=== PATIENT | female | born 1945 | race Caucasian/White ===

== ENCOUNTER 2016-10-08 20:50 | Emergency (ER) | payer MEDICARE ==
--- NOTE | 2016-10-08 23:55 | ER Document Report ---
ED General - General Mode of Arrival: Medic Information source: Patient TRAVEL OUTSIDE OF THE [place] IN LAST 30 DAYS: No - HPI Onset: Other - Refer to HPI notes Associated symptoms: Diarrhea, Nausea Similar symptoms previously: Yes Recently seen / treated by doctor: No <DYANA WILLS - Last Filed: 10/09/16 06:27> <MACY HERNADEZ - Last Filed: 10/09/16 06:30> - General Chief Complaint: Back Pain Stated Complaint: BACK PAIN Time Seen by Provider: 10/08/16 23:32 Notes: Patient is a 71-year-old female presenting to the emergency department for right -sided back pain. Patient states that her pain was onset on Friday and worsened today. Patient states that she has some chronic back pain and she has frequent flareups however this pain is more severe. Patient is scheduled to have a colonoscopy tomorrow morning and has done the first half of her preparation for such. Patient has had multiple episodes of diarrhea due to the colonoscopy preparation and states that she sat on the commode for a long time of greater than 30 minutes. Patient also complains of some nausea. Patient describes her pain as stabbing across her back and in the lower right side. Patient denies any fever, numbness, tingling, or trauma to her back. Patient has no known drug allergies. (DYANA WILLS) - Related Data Allergies/Adverse Reactions: No Known Allergies Allergy (Unverified 10/17/11 11:25) Past Medical History - General Information source: Patient - Social History Smoking Status: Never Smoker Cigarette use (# per day): No Chew tobacco use (# tins/day): No Smoking Education Provided: No Frequency of alcohol use: None Drug Abuse: None Patient has suicidal ideation: No Patient has homicidal ideation: No - Past Medical History Cardiac Medical History: Reports: Hx Hypercholesterolemia, Hx Hypertension Endocrine Medical History: Reports: Hx Diabetes Mellitus Type 2 GI Medical History: Reports: Hx Gastroesophageal Reflux Disease, Hx Irritable Bowel Musculoskeltal Medical History: Reports Hx Arthritis - OA Surgical Hx: Negative Past Surgical History: Reports: Hx Cholecystectomy, Hx Gynecologic Surgery - BTL , Hx Orthopedic Surgery - knee, Hx Tubal Ligation - Immunizations Hx Diphtheria, Pertussis, Tetanus Vaccination: No <DYANA WILLS - Last Filed: 10/09/16 06:27> - Social History Family History: Reviewed & Not Pertinent <MACY HERNADEZ - Last Filed: 10/09/16 06:30> Review of Systems - Review of Systems Constitutional: No symptoms reported EENT: No symptoms reported Cardiovascular: No symptoms reported Respiratory: No symptoms reported Gastrointestinal: See HPI, Diarrhea, Nausea Genitourinary: No symptoms reported Female Genitourinary: No symptoms reported Musculoskeletal: See HPI, Back pain Skin: No symptoms reported Hematologic/Lymphatic: No symptoms reported Neurological/Psychological: No symptoms reported -: Yes All other systems reviewed and negative <DYANA WILLS - Last Filed: 10/09/16 06:27> Physical Exam <DYANA WILLS - Last Filed: 10/09/16 06:27> <MACY HERNADEZ - Last Filed: 10/09/16 06:30> - Vital signs Vitals: Temp Pulse Resp BP Pulse Ox 97.7 F 77 17 138/59 H 99 10/08/16 20:59 10/08/16 20:59 10/08/16 20:59 10/08/16 20:59 10/08/16 20:59 - Notes Notes: GENERAL: Alert, interacts well. No acute distress. HEAD: Normocephalic, atraumatic. EYES: Pupils equal, round, and reactive to light. Extraocular movements intact. ENT: Oral mucosa moist, tongue midline. NECK: Full range of motion. Supple. Trachea midline. LUNGS: Clear to auscultation bilaterally, no wheezes, rales, or rhonchi. No respiratory distress. HEART: Regular rate and rhythm. No murmurs, gallops, or rubs. ABDOMEN: Left lower quadrant abdominal pain. Non-distended. Bowel sounds present in all 4 quadrants. EXTREMITIES: Moves all 4 extremities spontaneously. No edema, dorsalis pedis pulses 2/4 bilaterally. No cyanosis. BACK: Right-sided paraspinal musculature spasm and tenderness to palpation from the thoracolumbar junction to the lumbosacral junction, tenderness to palpation mostly over the right sided paraspinal musculature at the level of the lumbosacral junction, there is some scoliosis of the spine, no midline bony tenderness to palpation, no step-offs, no deformities. Increased pain to the right lower back with straight leg test with the right leg, straight leg raise test is negative bilaterally. NEUROLOGICAL: Alert and oriented x3. Normal speech. Patellar DTRs 2+ bilaterally. PSYCH: Normal affect, normal mood. SKIN: Warm, dry, normal turgor. No rashes or lesions noted. (DYANA WILLS) Course - Laboratory Result Diagrams: 10/09/16 00:28 10/09/16 00:28 <DYANA WILLS - Last Filed: 10/09/16 06:27> - Laboratory Result Diagrams: 10/09/16 00:28 10/09/16 00:28 <MACY HERNADEZ - Last Filed: 10/09/16 06:30> - Re-evaluation Re-evalutation: 10/09/16 01:30 CBC unremarkable, CMP grossly unremarkable minimally elevated glucose at 122, cardiac enzymes negative, urinalysis negative. No evidence of cauda equina. Patient's pain here treated with a single dose of narcotic as well as with Robaxin. Patient is recommended to finish her colonoscopy prep and to go to her colonoscopy tomorrow. Patient is not recommended to skip her colonoscopy. Patient's pain appears to be an acute exacerbation of her chronic low back pain. No indication for further narcotics on discharge, no indication for MRI at this time. Discharged home. (MACY HERNADEZ) - Vital Signs Vital signs: Temp Pulse Resp BP Pulse Ox 98 F 77 18 133/64 H 98 10/09/16 02:20 10/09/16 02:20 10/09/16 02:20 10/09/16 02:20 10/09/16 02:20 - Laboratory Laboratory results interpreted by me: 10/09/16 00:28 Est GFR (Non-Af Amer) 58 L Glucose 122 H - EKG Interpretation by Me Additional EKG results interpreted by me: 10/09/16 01:33 EKG computer interprets as atrial fibrillation however it disagree patient does have a tremor so there is an irregular baseline however it appears to be sinus rhythm at a rate of 69, normal axis, normal intervals, no ST segment elevations or depressions, no T-wave inversions per my interpretation. (MACY HERNADEZ) Discharge <DYANA WILLS - Last Filed: 10/09/16 06:27> <MACY HERNADEZ - Last Filed: 10/09/16 06:30> - Discharge Clinical Impression: Acute exacerbation of chronic low back pain Condition: Stable Disposition: HOME, SELF-CARE Instructions: Low Back Pain ([facility]) Prescriptions: Methocarbamol [Robaxin 750 mg Tablet] 750 mg PO ASDIR PRN #40 tablet PRN Reason: Scribe Attestation: 10/09/16 06:30 I personally performed the services described in the documentation, reviewed and edited the documentation which was dictated to the scribe in my presence, and it accurately records my words and actions. (MACY HERNADEZ) [employer] Documentation - Scribe Written by Shawn:: Shawn Emanuel, 10/09/2016 15:30 acting as scribe for :: Pb <DYANA WILLS - Last Filed: 10/09/16 06:27>
[2016-10-09 00:36] LABS: ABSOLUTE BASOPHILS # (AUTO) 0.1 10^3/uL (0.0-0.2); ABSOLUTE EOSINOPHILS # (AUTO) 0.4 10^3/uL (0.0-0.6); ABSOLUTE LYMPHOCYTES (AUTO) 2.1 10^3/uL (0.5-4.7); ABSOLUTE MONOCYTES (AUTO) 0.5 10^3/uL (0.1-1.4); ABSOLUTE NEUT (AUTO) 6.5 10^3/uL (1.7-8.2); BASOPHILS % (AUTO) 0.6 % (0-2); EOSINOPHILS % (AUTO) 3.8 % (0-6); HEMATOCRIT 39.9 % (36.0-47.0); HEMOGLOBIN 13.5 g/dL (12.0-15.5); HGB HCT DIFFERENCE 0.6; LYMPHOCYTES % (AUTO) 22.1 % (13-45); MEAN CORPUSCULAR HEMOGLOBIN 30.2 pg (27.0-33.4); MEAN CORPUSCULAR HGB CONC 33.9 g/dL (32.0-36.0); MEAN CORPUSCULAR VOLUME 89 fl (80-97); MONOCYTES % (AUTO) 5.4 % (3-13); RED BLOOD COUNT 4.48 10^6/uL (3.72-5.28); RED CELL DISTRIBUTION WIDTH 13.3 % (11.5-14.0); SEGMENTED NEUTROPHILS % (AUTO) 68.1 % (42-78); WHITE BLOOD COUNT 9.5 10^3/uL (4.0-10.5)
[2016-10-09] MEDS ORDERED: HYDROCODONE/ACETAMINOPHEN 5-325 MG TABLET PO ONE (00:44)
[2016-10-09] MEDS ORDERED: NORMAL SALINE 1000 ML 1,000 ML IV ONE (00:44)
[2016-10-09] MEDS ORDERED: METHOCARBAMOL 750 MG TABLET PO ONE (00:44)
[2016-10-09 00:58] LABS: ALANINE AMINOTRANSFERASE 36 U/L (9-52); ALBUMIN 3.6 g/dL (3.5-5.0); ALKALINE PHOSPHATASE 65 U/L (38-126); ANION GAP 11 (5-19); ASPARTATE AMINO TRANSFERASE 23 U/L (14-36); BILIRUBIN,DIRECT 0.2 mg/dL (0.0-0.4); BILIRUBIN,TOTAL 0.8 mg/dL (0.2-1.3); BLOOD UREA NITROGEN 18 mg/dL (7-20); CALCIUM 8.7 mg/dL (8.4-10.2); CARBON DIOXIDE 27 mmol/L (22-30); CHLORIDE 101 mmol/L (98-107); CREATINE KINASE 69 U/L (30-135); CREATININE RESULT 0.95 mg/dL (0.52-1.25); GLUCOSE 122 mg/dL (75-110); POTASSIUM 3.9 mmol/L (3.6-5.0)
[2016-10-09 01:21] LABS: CREATINE KINASE MB 1.31 ng/mL (<4.55)
[2016-10-09 01:25] LABS: APPEARANCE,URINE CLEAR; BILIRUBIN,URINE NEGATIVE (NEGATIVE); GLUCOSE, URINE NEGATIVE (NEGATIVE); KETONES,URINE NEGATIVE (NEGATIVE); LEUKOCYTE ESTERASE,URINE NEGATIVE (NEGATIVE); NITRITE,URINE NEGATIVE (NEGATIVE); PROTEIN,URINE NEGATIVE (NEGATIVE); URINE SPECIFIC GRAVITY 1.013; UROBILINOGEN,URINE NEGATIVE mg/dL (<2.0)
[2016-10-09 01:26] LABS: TROPONIN I < 0.012 ng/mL
[2016-10-09 02:43] VITALS: BP 133/64
--- NOTE | 2016-10-09 08:16 | EKG REPORT ---
SEVERITY:- ABNORMAL ECG - MORE LIKELY SINUS RHYTHM WITH BASELINE ARTEFACTS. REPEAT EKG, AND CLINICAL CORRELATION. A-FLUTTER/FIBRILLATION W/ COMPLETE AV BLOCK : Confirmed by: Chivo Culp MD 09-Oct-2016 08:16:23
== END 2016-10-09 02:15 | disposition home or self-care (01) ==
LOC: ER 20:50
DX: G89.29 Other chronic pain (principal); M54.5 Low back pain; R11.0 Nausea; R19.7 Diarrhea, unspecified; E78.00 Pure hypercholesterolemia, unspecified; E11.9 Type 2 diabetes mellitus without complications; I10 Essential (primary) hypertension; Z90.49 Acquired absence of other specified parts of digestive tract; Z98.51 Tubal ligation status
CPT/HCPCS: 93005; 99284; 96360; 36415; 82553; 82550; 85025; 80053; 81001; 84484; 93010; A9270 ×2; J7030; J3490

== ENCOUNTER → 2016-10-10 | Outpatient (CLI) | payer MEDICARE ==
--- NOTE | 2016-10-10 12:19 | RADIOLOGY REPORT (SQ) ---
EXAM DESCRIPTION: LUMBAR SPINE COMPLETE COMPLETED DATE/TIME: 10/10/2016 11:31 am REASON FOR STUDY: LOW BACK PAIN M54.5 LOW BACK PAIN COMPARISON: [facility] 06/14/2014 NUMBER OF VIEWS: Five views including obliques. TECHNIQUE: AP, lateral, oblique, and sacral radiographic images acquired of the lumbar spine. LIMITATIONS: None. FINDINGS: MINERALIZATION: Normal. SEGMENTATION: Normal. No transitional anatomy. ALIGNMENT: Convex rightward lumbar curvature VERTEBRAE: Maintained height. No fracture or worrisome bone lesion. DISCS: Significant disc space loss of height at all lumbar levels. Leftward bulky bony spurring at L 3-4. POSTERIOR ELEMENTS: Pedicles and facets are intact. No pars defect or posterior arch defects. Diffu se lumbar facet arthropathy HARDWARE: None in the spine. PARASPINAL SOFT TISSUES: Normal. PELVIS: Intact as visualized. No fractures or worrisome bone lesions. SI joints intact. OTHER: Clips post tubal ligation IMPRESSION: Significant multilevel degenerative disc changes TECHNICAL DOCUMENTATION: JOB ID: [id number] [employer]- All Rights Reserved
== END ==
LOC: OD 11:10
PROVIDERS: ATTEND Physician Assistant
DX: M54.5 Low back pain (principal); M51.36 Other intervertebral disc degeneration, lumbar region
CPT/HCPCS: 72110

== ENCOUNTER 2017-04-04 20:12 | Emergency (ER) | payer MEDICARE ==
[2017-04-04] MEDS ORDERED: NORMAL SALINE 1000 ML 500 ML IV ONE (21:19)
[2017-04-04] MEDS ORDERED: DIAZEPAM 2 MG TABLET PO ONE (21:20)
--- NOTE | 2017-04-04 21:25 | ER Document Report ---
ED General - General Chief Complaint: Dizziness Stated Complaint: DIZZINESS,NAUSEA Time Seen by Provider: 04/04/17 20:55 Notes: Patient is a 72-year-old female who presents with concerns of an episode of head fullness with associated dizziness. She reports that this episode started while she was using her iPad lasted approximately 20-30 minutes but has now mostly resolved. Patient is a difficult time characterizing the nature of her symptoms during this event only that she felt "weird". She denies any focal weakness, numbness, imbalance headache, neck pain, or altered mental status during this episode. She is uncertain what triggered the episode and states that it has mostly resolved after receiving IV fluids by EMS. She states that she had a sensation of mild chest heaviness during the episode but states that that likewise is completely resolved without intervention. She denies a history of similar symptoms in the past. She has not seen her primary doctor regarding today's concerns. TRAVEL OUTSIDE OF THE [place] IN LAST 30 DAYS: No - Related Data Allergies/Adverse Reactions: No Known Allergies Allergy (Unverified 10/17/11 11:25) Past Medical History - General Information source: Patient - Social History Smoking Status: Never Smoker Chew tobacco use (# tins/day): No Frequency of alcohol use: None Drug Abuse: None Lives with: Spouse/Significant other Family History: Reviewed & Not Pertinent Patient has suicidal ideation: No Patient has homicidal ideation: No - Past Medical History Cardiac Medical History: Reports: Hx Hypercholesterolemia, Hx Hypertension Denies: Hx Coronary Artery Disease, Hx Heart Attack Pulmonary Medical History: Denies: Hx Asthma, Hx Bronchitis, Hx COPD, Hx Pneumonia Neurological Medical History: Denies: Hx Cerebrovascular Accident, Hx Seizures Endocrine Medical History: Reports: Hx Diabetes Mellitus Type 1, Hx Diabetes Mellitus Type 2 Renal/ Medical History: Denies: Hx Peritoneal Dialysis GI Medical History: Reports: Hx Gastroesophageal Reflux Disease, Hx Irritable Bowel Musculoskeltal Medical History: Reports Hx Arthritis - OA Past Surgical History: Reports: Hx Cholecystectomy, Hx Gynecologic Surgery - BTL , Hx Orthopedic Surgery - knee, Hx Tubal Ligation. Denies: Hx Pacemaker - Immunizations Hx Diphtheria, Pertussis, Tetanus Vaccination: No Review of Systems - Review of Systems Notes: Constitutional: Negative for fever. HENT: Negative for sore throat. Eyes: Negative for visual changes. Cardiovascular: Negative for chest pain. Respiratory: Negative for shortness of breath. Gastrointestinal: Negative for abdominal pain, vomiting or diarrhea. Genitourinary: Negative for dysuria. Musculoskeletal: Negative for back pain. Skin: Negative for rash. Neurological: Negative for headaches, weakness or numbness. 10 point ROS negative except as marked above and in HPI. Physical Exam - Vital signs Vitals: Resp Pulse Ox 13 97 04/04/17 20:33 04/04/17 20:33 Interpretation: Normal Notes: PHYSICAL EXAMINATION: GENERAL: Well-appearing, well-nourished and in no acute distress. HEAD: Atraumatic, normocephalic. EYES: Pupils equal round and reactive to light, extraocular movements intact, sclera anicteric, conjunctiva are normal. ENT: nares patent, oropharynx clear without exudates. Moist mucous membranes. NECK: Normal range of motion, supple without lymphadenopathy LUNGS: Breath sounds clear to auscultation bilaterally and equal. No wheezes rales or rhonchi. HEART: Regular rate and rhythm without murmurs ABDOMEN: Soft, nontender, normoactive bowel sounds. No guarding, no rebound. No masses appreciated. EXTREMITIES: Normal range of motion, no pitting or edema. No cyanosis. NEUROLOGICAL: Face symmetric. Tongue protrudes midline. Extraocular motions intact. Pupils are 2 mm and equally reactive. Normal speech, normal gait. 5 out of 5 strength in both the distal and proximal upper and lower extremities bilaterally. Sensation is grossly intact throughout. Finger to nose testing normal. Pronator drift normal. PSYCH: Normal mood, normal affect. SKIN: Warm, Dry, normal turgor, no rashes or lesions noted. Course - Re-evaluation Re-evalutation: 04/04/17 21:25 Presentation and an overall well-appearing patient in no acute distress who complains of an episode of head fullness and dizziness. At time of evaluation, patient's vitals are within normal limits and they are denying any additional acute complaints. Physical examination without focal findings. No neurologic deficits. They deny any chest pain, shortness of breath, nausea, vomiting, or diarrhea. No dysuria or fever. Labs show mild urinary tract infection and a culture has been sent. Labs also demonstrate mild hypokalemia which I do not suspect is related to the patient's presentation. This has been repleted with oral potassium and magnesium and the patient has been instructed for recheck as an outpatient within the next 3 days. Troponin is also negative. Low clinical suspicion for ACS, occult pneumonia, acute intra-abdominal pathology, stroke, or transient ischemic attack based on clinical history, examination, and laboratories. They have tolerated oral intake without difficulty. I do not suspect an acute cerebellar stroke as patient denies any symptoms at time of my assessment and has no signs of cerebellar injury on examination. At this time will discharge with return precautions and follow-up recommendations. Verbal discharge instructions given a the bedside and opportunity for questions given. Medication warnings reviewed. Patient is in agreement with this plan and has verbalized understanding of return precautions and the need for primary care follow-up in the next 24-72 hours. - Vital Signs Vital signs: Temp Pulse Resp BP Pulse Ox 98.9 F 90 21 H 150/61 H 99 04/04/17 22:02 04/04/17 20:57 04/04/17 22:02 04/04/17 22:02 04/04/17 22:02 - Laboratory Result Diagrams: 04/04/17 20:45 04/04/17 20:45 Laboratory results interpreted by me: 04/04/17 04/04/17 04/04/17 20:45 20:45 21:20 WBC 11.9 H Absolute Neutrophils 9.3 H Potassium 2.9 L* Glucose 205 H Ur Leukocyte Esterase MODERATE H - EKG Interpretation by Me Additional EKG results interpreted by me: 04/05/17 04:04 Sinus rhythm. Rate 80. No ST elevations or depressions. Motion artifact. Discharge - Discharge Clinical Impression: Dizziness, Hypokalemia Urinary tract infection Qualifiers: Urinary tract infection type: acute cystitis Hematuria presence: without hematuria Qualified Code(s): N30.00 - Acute cystitis without hematuria Condition: Good Disposition: HOME, SELF-CARE Additional Instructions: You were seen today for lightheadedness/dizziness. Your labs do show that she have a urinary tract infection which may be related to her symptoms. Your potassium is also slightly low and has been replaced here in the emergency department. You need to follow-up with your primary care doctor for a recheck of your potassium level. Please follow closely with your primary care physician in the next 1-3 days. Return if you pass out, have additional episodes of lightheadedness, develop weakness/numbness, have persistent vomiting , chest pain, shortness of breath or any other symptoms that are concerning to you. You are being sent home on a 5 day course of antibiotics to treat your urinary tract infection. Prescriptions: Cephalexin Monohydrate [Keflex 500 mg Capsule] 500 mg PO Q6H 5 Days capsule Referrals: NEVAEH RAJAN MD [Primary Care Provider] - Follow up in 3-5 days
[2017-04-04 21:48] LABS: APPEARANCE,URINE CLEAR; BILIRUBIN,URINE NEGATIVE (NEGATIVE); COLOR,URINE YELLOW; GLUCOSE, URINE NEGATIVE (NEGATIVE); KETONES,URINE NEGATIVE (NEGATIVE); LEUKOCYTE ESTERASE,URINE MODERATE (NEGATIVE); NITRITE,URINE NEGATIVE (NEGATIVE); PROTEIN,URINE NEGATIVE (NEGATIVE); URINE SPECIFIC GRAVITY 1.006; UROBILINOGEN,URINE NEGATIVE mg/dL (<2.0)
[2017-04-04 22:15] LABS: ABSOLUTE BASOPHILS # (AUTO) 0.1 10^3/uL (0.0-0.2); ABSOLUTE EOSINOPHILS # (AUTO) 0.3 10^3/uL (0.0-0.6); ABSOLUTE LYMPHOCYTES (AUTO) 1.9 10^3/uL (0.5-4.7); ABSOLUTE MONOCYTES (AUTO) 0.4 10^3/uL (0.1-1.4); ABSOLUTE NEUT (AUTO) 9.3 10^3/uL (1.7-8.2); BASOPHILS % (AUTO) 0.6 % (0-2); EOSINOPHILS % (AUTO) 2.8 % (0-6); HEMATOCRIT 38.8 % (36.0-47.0); HEMOGLOBIN 12.9 g/dL (12.0-15.5); LYMPHOCYTES % (AUTO) 15.5 % (13-45); MEAN CORPUSCULAR HEMOGLOBIN 30.1 pg (27.0-33.4); MEAN CORPUSCULAR HGB CONC 33.4 g/dL (32.0-36.0); MEAN CORPUSCULAR VOLUME 90 fl (80-97); MONOCYTES % (AUTO) 3.1 % (3-13); PLATELET COUNT 247 10^3/uL (150-450); RED CELL DISTRIBUTION WIDTH 13.4 % (11.5-14.0); TOTAL CELLS COUNTED % (AUTO) 100 %; WHITE BLOOD COUNT 11.9 10^3/uL (4.0-10.5)
[2017-04-04 22:18] LABS: ANION GAP 11 (5-19); BLOOD UREA NITROGEN 16 mg/dL (7-20); CALCIUM 8.6 mg/dL (8.4-10.2); CARBON DIOXIDE 28 mmol/L (22-30); CHLORIDE 102 mmol/L (98-107); GLUCOSE 205 mg/dL (75-110); SODIUM 140.7 mmol/L (137-145)
[2017-04-04 22:24] LABS: POTASSIUM 2.9 mmol/L (3.6-5.0)
[2017-04-04] MEDS ORDERED: MAGNESIUM OXIDE 400 MG TABLET PO ONE (22:25)
[2017-04-04] MEDS ORDERED: POTASSIUM CHLORIDE 20 MEQ/15 ML UDCUP PO ONE (22:25)
[2017-04-04] MEDS ORDERED: CEPHALEXIN 500 MG CAPSULE PO ONE (22:37)
[2017-04-04 22:59] VITALS: BP 150/61
--- NOTE | 2017-04-05 11:43 | EKG REPORT ---
SEVERITY:- ABNORMAL ECG - SINUS RHYTHM : Confirmed by: Silvia Hernandez 05-Apr-2017 11:43:11
--- NOTE | 2017-04-05 11:45 | EKG REPORT ---
SEVERITY:- ABNORMAL ECG - PROPABLE SINUS RHYTHM REC REPEAT EKG BECUASE ARTIFACTS PREVENTS ACCURATE INTERPRETATION : Confirmed by: Silvia Hernandez 05-Apr-2017 11:45:16
== END 2017-04-04 23:02 | disposition home or self-care (01) ==
LOC: ER 20:12
DX: E87.6 Hypokalemia (principal); N30.00 Acute cystitis without hematuria; R11.0 Nausea; R42 Dizziness and giddiness; E78.00 Pure hypercholesterolemia, unspecified; I10 Essential (primary) hypertension; Z90.49 Acquired absence of other specified parts of digestive tract; Z98.51 Tubal ligation status
CPT/HCPCS: 93005; 99284; 96360; 36415; 87086; 85025; 80048; 81001; 84484; 93010; A9270 ×4; J7030; J3490

== ENCOUNTER 2017-09-11 20:02 | Observation (INO) | payer MEDICARE ==
[2017-09-11] MEDS ORDERED: ASPIRIN 81 MG TABLET, CHEWABLE PO ONE (20:34)
[2017-09-11 22:02] LABS: ABSOLUTE BASOPHILS # (AUTO) 0.1 10^3/uL (0.0-0.2); ABSOLUTE EOSINOPHILS # (AUTO) 0.3 10^3/uL (0.0-0.6); ABSOLUTE LYMPHOCYTES (AUTO) 2.3 10^3/uL (0.5-4.7); ABSOLUTE MONOCYTES (AUTO) 0.4 10^3/uL (0.1-1.4); ABSOLUTE NEUT (AUTO) 7.1 10^3/uL (1.7-8.2); BASOPHILS % (AUTO) 0.5 % (0-2); EOSINOPHILS % (AUTO) 3.4 % (0-6); HEMATOCRIT 40.3 % (36.0-47.0); HEMOGLOBIN 13.8 g/dL (12.0-15.5); LYMPHOCYTES % (AUTO) 22.5 % (13-45); MEAN CORPUSCULAR HEMOGLOBIN 30.7 pg (27.0-33.4); MEAN CORPUSCULAR HGB CONC 34.4 g/dL (32.0-36.0); MEAN CORPUSCULAR VOLUME 89 fl (80-97); MONOCYTES % (AUTO) 4.3 % (3-13); PLATELET COUNT 259 10^3/uL (150-450); RED BLOOD COUNT 4.51 10^6/uL (3.72-5.28); RED CELL DISTRIBUTION WIDTH 13.6 % (11.5-14.0); SEGMENTED NEUTROPHILS % (AUTO) 69.3 % (42-78); TOTAL CELLS COUNTED % (AUTO) 100 %; WHITE BLOOD COUNT 10.2 10^3/uL (4.0-10.5)
--- NOTE | 2017-09-11 22:02 | RADIOLOGY REPORT (SQ) ---
EXAM DESCRIPTION: CHEST SINGLE VIEW COMPLETED DATE/TIME: 09/11/2017 9:09 pm REASON FOR STUDY: chest pain COMPARISON: 05/11/2012 EXAM PARAMETERS: NUMBER OF VIEWS: One view. TECHNIQUE: Single frontal radiographic view of the chest acquired. RADIATION DOSE: NA LIMITATIONS: None. FINDINGS: LUNGS AND PLEURA: No acute opacities, masses or pneumothorax. No pleural effusion. MEDIASTINUM AND HILAR STRUCTURES: Stable. HEART AND VASCULAR STRUCTURES: Heart normal in size. Normal vasculature. BONES: No acute findings. HARDWARE: None in the chest. OTHER: No other significant finding. IMPRESSION: NO ACUTE RADIOGRAPHIC FINDING IN THE CHEST. TECHNICAL DOCUMENTATION: JOB ID: [id number] [place]-[id number] 2010 [employer]- All Rights Reserved Reading location - IP/workstation name: [email or web address]
--- NOTE | 2017-09-11 22:06 | ER Document Report ---
ED General - General Chief Complaint: Chest Pain > 30 Stated Complaint: CHEST PAIN Time Seen by Provider: 09/11/17 20:34 Mode of Arrival: Ambulatory Information source: Patient Notes: 72-year-old female history of Parkinson's hypertension presents with complaints of chest pressure sensation. Patient notes she has had multiple similar episodes over the past few months which she attributes to anxiety. Patient is normally she does not have anxiety however she found her daughter in her room Patient noted today was a heavy pressure sensation felt like a ballooning in her chest, was given 2 nitroglycerin and her chest pain resolved Last stress test was approximately 9 years ago TRAVEL OUTSIDE OF THE [place] IN LAST 30 DAYS: No - HPI Onset: Other Onset/Duration: Intermittent Quality of pain: Pressure Severity: Mild Pain Level: 1 Associated symptoms: Chest pain Exacerbated by: Denies Relieved by: Other - nitro Similar symptoms previously: Yes Recently seen / treated by doctor: No - Related Data Allergies/Adverse Reactions: No Known Allergies Allergy (Unverified 10/17/11 11:25) Past Medical History - Social History Smoking Status: Never Smoker Cigarette use (# per day): No Chew tobacco use (# tins/day): No Smoking Education Provided: No Frequency of alcohol use: None Drug Abuse: None Family History: Reviewed & Not Pertinent Patient has suicidal ideation: No Patient has homicidal ideation: No - Past Medical History Cardiac Medical History: Reports: Hx Hypercholesterolemia, Hx Hypertension Denies: Hx Coronary Artery Disease, Hx Heart Attack Pulmonary Medical History: Denies: Hx Asthma, Hx Bronchitis, Hx COPD, Hx Pneumonia Neurological Medical History: Denies: Hx Cerebrovascular Accident, Hx Seizures Endocrine Medical History: Reports: Hx Diabetes Mellitus Type 1, Hx Diabetes Mellitus Type 2 Renal/ Medical History: Denies: Hx Peritoneal Dialysis GI Medical History: Reports: Hx Gastroesophageal Reflux Disease, Hx Irritable Bowel Musculoskeltal Medical History: Reports Hx Arthritis - OA Past Surgical History: Reports: Hx Cholecystectomy, Hx Gynecologic Surgery - BTL , Hx Orthopedic Surgery - knee bilaterally, Hx Tubal Ligation. Denies: Hx Pacemaker - Immunizations Hx Diphtheria, Pertussis, Tetanus Vaccination: No Review of Systems - Review of Systems Notes: REVIEW OF SYSTEMS: CONSTITUTIONAL : Denies fever, chills, or sweats. Denies recent illness. EENT: Denies eye, ear, throat, or mouth pain or symptoms. Denies nasal or sinus congestion or discharge. Denies throat, tongue, or mouth swelling or difficulty swallowing. CARDIOVASCULAR: Admits chest pain. RESPIRATORY: Denies cough, cold, or chest congestion. Denies shortness of breath, difficulty breathing, or wheezing. GASTROINTESTINAL: Denies abdominal pain or distention. Denies nausea, vomiting , or diarrhea. Denies blood in vomitus, stools, or per rectum. Denies black, tarry stools. Denies constipation. GENITOURINARY: Denies difficulty urinating, painful urination, burning, frequency, blood in urine, or discharge. FEMALE GENITOURINARY: Denies vaginal bleeding, heavy or abnormal periods, irregular periods. Denies vaginal discharge or odor. MUSCULOSKELETAL: Denies back or neck pain or stiffness. Denies joint pain or swelling. SKIN: Denies rash, lesions or sores. HEMATOLOGIC : Denies easy bruising or bleeding. LYMPHATIC: Denies swollen, enlarged glands. NEUROLOGICAL: Denies confusion or altered mental status. Denies passing out or loss of consciousness. Denies dizziness or lightheadedness. Denies headache. Denies weakness or paralysis or loss of use of either side. Denies problems with gait or speech. Denies sensory loss, numbness, or tingling. Denies seizures. PSYCHIATRIC: Admits to stress anxiety. ALL OTHER SYSTEMS REVIEWED AND NEGATIVE. PHYSICAL EXAMINATION: GENERAL: Well-appearing, well-nourished and in no acute distress. HEAD: Atraumatic, normocephalic. EYES: Pupils equal round and reactive to light, extraocular movements intact, conjunctiva are normal. ENT: Nares patent, oropharynx clear without exudates. Moist mucous membranes. NECK: Normal range of motion, supple without lymphadenopathy LUNGS: Breath sounds clear to auscultation bilaterally and equal. No wheezes rales or rhonchi. HEART: Regular rate and rhythm without murmurs ABDOMEN: Soft, nontender, nondistended abdomen. No guarding, no rebound. No masses appreciated. Female : deferred Musculoskeletal: Normal range of motion, no pitting or edema. No cyanosis. NEUROLOGICAL: Chronic tremors PSYCH: Normal mood, normal affect. SKIN: Warm, Dry, normal turgor, no rashes or lesions noted. Dictation was performed using [employer] voice recognition software Physical Exam - Vital signs Vitals: Resp 21 H 09/11/17 20:07 Course - Re-evaluation Re-evalutation: 09/11/17 22:05 While this may be attributed to anxiety is and symptomatic relief with nitroglycerin that I believe an ACS rule out is appropriate 09/11/17 22:48 pt noted to be hypotensive, started on iv fluids, will admit to Dr Coelho covering for Dr Rajan - Vital Signs Vital signs: Temp Pulse Resp BP Pulse Ox 97.9 F 68 16 108/55 L 95 09/11/17 20:22 09/11/17 20:22 09/11/17 21:01 09/11/17 21:01 09/11/17 21:01 - Laboratory Result Diagrams: 09/11/17 21:55 09/11/17 21:55 Laboratory results interpreted by me: 09/11/17 21:55 Sodium 146.4 H BUN 31 H Est GFR (Non-Af Amer) 53 L Glucose 113 H - Diagnostic Test Radiology reviewed: Image reviewed, Reports reviewed - EKG Interpretation by Me EKG shows normal: Sinus rhythm, [place], Intervals, QRS Complexes Discharge - Discharge Clinical Impression: Chest pain Qualifiers: Chest pain type: unspecified Qualified Code(s): R07.9 - Chest pain, unspecified Hypotension Qualifiers: Hypotension type: unspecified hypotension type Qualified Code(s): I95.9 - Hypotension, unspecified Condition: Stable Disposition: ADMITTED OBSERVATION Admitting Provider: [facility] Unit Admitted: Telemetry Referrals: NEVAEH RAJAN MD [Primary Care Provider] - Follow up as needed
[2017-09-11 22:18] LABS: ALANINE AMINOTRANSFERASE 26 U/L (9-52); ALBUMIN 3.8 g/dL (3.5-5.0); ALKALINE PHOSPHATASE 62 U/L (38-126); ANION GAP 14 (5-19); ASPARTATE AMINO TRANSFERASE 20 U/L (14-36); BILIRUBIN,DIRECT 0.3 mg/dL (0.0-0.4); BILIRUBIN,TOTAL 0.3 mg/dL (0.2-1.3); BLOOD UREA NITROGEN 31 mg/dL (7-20); CALCIUM 9.4 mg/dL (8.4-10.2); CARBON DIOXIDE 25 mmol/L (22-30); CHLORIDE 107 mmol/L (98-107); CREATINE KINASE 40 U/L (30-135); GLUCOSE 113 mg/dL (75-110); POTASSIUM 3.6 mmol/L (3.6-5.0); SODIUM 146.4 mmol/L (137-145)
[2017-09-11 22:27] LABS: CREATINE KINASE MB 0.72 ng/mL (<4.55)
[2017-09-11 22:28] LABS: TROPONIN I < 0.012 ng/mL
[2017-09-12 05:27] LABS: ABSOLUTE EOSINOPHILS # (AUTO) 0.3 10^3/uL (0.0-0.6); ABSOLUTE MONOCYTES (AUTO) 0.4 10^3/uL (0.1-1.4); ABSOLUTE NEUT (AUTO) 4.3 10^3/uL (1.7-8.2); BASOPHILS % (AUTO) 0.7 % (0-2); EOSINOPHILS % (AUTO) 4.2 % (0-6); HEMATOCRIT 38.3 % (36.0-47.0); LYMPHOCYTES % (AUTO) 28.5 % (13-45); MEAN CORPUSCULAR HEMOGLOBIN 30.2 pg (27.0-33.4); MEAN CORPUSCULAR HGB CONC 33.9 g/dL (32.0-36.0); MEAN CORPUSCULAR VOLUME 89 fl (80-97); MONOCYTES % (AUTO) 5.3 % (3-13); PLATELET COUNT 235 10^3/uL (150-450); RED BLOOD COUNT 4.29 10^6/uL (3.72-5.28); RED CELL DISTRIBUTION WIDTH 13.5 % (11.5-14.0); SEGMENTED NEUTROPHILS % (AUTO) 61.3 % (42-78); TOTAL CELLS COUNTED % (AUTO) 100 %; WHITE BLOOD COUNT 7.1 10^3/uL (4.0-10.5)
[2017-09-12 06:01] LABS: ANION GAP 12 (5-19); BLOOD UREA NITROGEN 26 mg/dL (7-20); CALCIUM 8.7 mg/dL (8.4-10.2); CARBON DIOXIDE 25 mmol/L (22-30); CHLORIDE 111 mmol/L (98-107); CREATINE KINASE 33 U/L (30-135); GLUCOSE 114 mg/dL (75-110); POTASSIUM 3.6 mmol/L (3.6-5.0); SODIUM 147.7 mmol/L (137-145)
[2017-09-12 06:02] LABS: CREATINE KINASE MB 0.71 ng/mL (<4.55)
[2017-09-12 06:07] LABS: TROPONIN I < 0.012 ng/mL
--- NOTE | 2017-09-12 07:31 | EKG REPORT ---
SEVERITY:- DEFECTIVE ECG - ATRIAL FIBRILLATION, V-RATE 69-82 VS BASELINE ARTEFACTS NONSPECIFIC T ABNORMALITIES, LATERAL LEADS : Confirmed by: Chivo Culp MD 12-Sep-2017 07:30:26
[2017-09-12] MEDS ORDERED: ALBUTEROL SULFATE HFA (90 MCG/PUFF) 200 PUFF/8.5 GM MDI IH PRN (07:58)
[2017-09-12] MEDS ORDERED: (PENDING PHARMACY ID) (Omega-3 Fatty Acids/Fish Oil [Fish Oil 1,000 Mg Capsule] 1 EACH) PO SCH (08:00)
[2017-09-12] MEDS ORDERED: ROPINIROLE HCL 8 MG PO SCH (08:00)
[2017-09-12] MEDS ORDERED: (PENDING PHARMACY ID) (Esomeprazole Mag Trihydrate [Nexium] 40 MG) PO SCH (08:00)
[2017-09-12] MEDS ORDERED: (PENDING PHARMACY ID) (Ropinirole Hcl [Requip Xl] 2 MG) PO SCH (08:00)
[2017-09-12] MEDS ORDERED: LANSOPRAZOLE 30 MG TAB.RAP.DR PO ONE (09:00)
[2017-09-12] MEDS ORDERED: LEVOTHYROXINE SODIUM 0.1 MG TABLET PO ONE (09:00)
[2017-09-12] MEDS ORDERED: OMEGA-3 ACID ETHYL ESTERS 1 GM CAPSULE PO SCH (10:00)
[2017-09-12] MEDS ORDERED: HYDROCHLOROTHIAZIDE 25 MG TABLET PO SCH (10:00)
[2017-09-12] MEDS ORDERED: ENOXAPARIN SODIUM INJ 40 MG/0.4 ML DISP.SYRIN SUBCUT SCH (10:00)
[2017-09-12] MEDS ORDERED: ASPIRIN 81 MG TABLET, ENT COATED PO SCH (10:00)
[2017-09-12] MEDS ORDERED: LISINOPRIL 10 MG TABLET PO SCH (10:00)
[2017-09-12] MEDS ORDERED: METFORMIN HCL 500 MG TABLET PO SCH (10:00)
[2017-09-12 11:16] LABS: CREATINE KINASE MB 0.74 ng/mL (<4.55)
[2017-09-12 11:17] LABS: TROPONIN I < 0.012 ng/mL
[2017-09-12] MEDS ORDERED: LOPERAMIDE HCL 2 MG CAPSULE PO PRN (13:42)
[2017-09-12] MEDS ORDERED: LOPERAMIDE HCL 2 MG CAPSULE PO ONE (14:15)
[2017-09-12 16:39] LABS: TROPONIN I < 0.012 ng/mL
--- NOTE | 2017-09-12 17:14 | PDOC H&P ---
History of Present Illness Admission Date/PCP: 09/11/17 23:14 NEVAEH RAJAN MD History of Present Illness: ALEX ERIC is a 72 year old female, she has a history of Parkinson disease, type 2 diabetes mellitus, she came to the emergency room for evaluation of atypical chest pain, the chest pain is not provoked by activity or emotional outbursts. The chest pain is not pressure-like this retrosternal chest pain, because she has risk factors for ischemic heart disease, she has diabetes mellitus, she was brought in for observation and evaluation of her symptoms. The 3 sets of cardiac enzymes are negative for acute AK, the 12-lead EKG that was done suggest atrial fibrillation but is rate controlled, there are a lot of artifacts on the EKG because of the tremors. Past Medical History Cardiac Medical History: Reports: Hyperlipidema, Hypertension Endocrine Medical History: Reports: Diabetes Mellitus Type 2 GI Medical History: Reports: Gastroesophageal Reflux Disease Musculoskeltal Medical History: Reports: Arthritis - OA Past Surgical History Past Surgical History: Reports: Cholecystectomy, Orthopedic Surgery - knee bilaterally, Tubal Ligation Social History Smoking Status: Former Smoker Drugs: None - Advance Directive Resuscitation Status: Full Code Family History Family History: Reviewed & Not Pertinent Parental Family History Reviewed: Yes Children Family History Reviewed: Yes Sibling(s) Family History Reviewed.: Yes Medication/Allergy Home Medications: Aspirin [Ecotrin 81 mg EC Tablet] 81 mg PO DAILY 10/17/11 Levothyroxine Sodium [Synthroid 0.1 mg Tablet] 100 mcg PO Q6AM 05/12/12 Lisinopril [Prinivil 10 mg Tablet] 20 mg PO DAILY 05/12/12 Oden-3 Fatty Acids/Fish Oil [Fish Oil 1,000 mg Capsule] 1 each PO DAILY Simvastatin [Zocor 40 mg Tablet] 40 mg PO QHS 05/12/12 Albuterol Sulfate [Proair HFA Inhalation Aerosol 8.5 gm MDI] 2 puff IH Q4HP PRN 09/12/17 Esomeprazole Mag Trihydrate [Nexium] 40 mg PO DAILY 09/12/17 Hydrochlorothiazide 25 mg PO DAILY 09/12/17 Metformin HCl [Metformin HCl ER] 1,000 mg PO DAILY 09/12/17 Metformin HCl [Metformin HCl ER] 500 mg PO QPM 09/12/17 Mv-Min/Iron/Folic/Calcium/Vitk [One-A-Day Women's Tablet] 1 tab PO DAILY Ropinirole HCl [Requip Xl] 8 mg PO DAILY 09/12/17 Allergies/Adverse Reactions: No Known Allergies Allergy (Unverified 10/17/11 11:25) Review of Systems Constitutional: ABSENT: chills, fever(s), headache(s), weight gain, weight loss Eyes: ABSENT: visual disturbances Ears: ABSENT: hearing changes Cardiovascular: PRESENT: chest pain. ABSENT: dyspnea on exertion, edema, orthropnea, palpitations Respiratory: ABSENT: cough, hemoptysis Gastrointestinal: ABSENT: abdominal pain, constipation, diarrhea, hematemesis, hematochezia, nausea, vomiting Genitourinary: ABSENT: dysuria, hematuria Musculoskeletal: ABSENT: joint swelling Integumentary: ABSENT: rash, wounds Neurological: ABSENT: abnormal gait, abnormal speech, confusion, dizziness, focal weakness, syncope Psychiatric: ABSENT: anxiety, depression, homidical ideation, suicidal ideation Endocrine: ABSENT: cold intolerance, heat intolerance, menstrual abnormalities, polydipsia, polyuria Hematologic/Lymphatic: ABSENT: easy bleeding, easy bruising, lymphadenopathy Physical Exam Vital Signs: Temp Pulse Resp BP Pulse Ox 98.0 F 78 16 137/70 H 98 09/12/17 14:55 09/12/17 14:55 09/12/17 14:55 09/12/17 14:55 09/12/17 14:55 Intake & Output 09/11/17 09/12/17 09/13/17 06:59 06:59 06:59 Intake Total 100 350 Balance 100 350 Weight 87.4 kg General appearance: PRESENT: no acute distress, well-developed, well-nourished Head exam: PRESENT: atraumatic, normocephalic Eye exam: PRESENT: conjunctiva pink, EOMI, PERRLA Ear exam: PRESENT: normal external ear exam Mouth exam: PRESENT: moist, tongue midline Neck exam: PRESENT: full ROM Respiratory exam: PRESENT: clear to auscultation rajani Cardiovascular exam: PRESENT: RRR, +S1, +S2 Pulses: PRESENT: normal dorsalis pedis pul, +2 pedal pulses bilateral Vascular exam: PRESENT: normal capillary refill GI/Abdominal exam: PRESENT: normal bowel sounds, soft Rectal exam: PRESENT: deferred Neurological exam: PRESENT: alert, awake, oriented to person, oriented to place , oriented to time, oriented to situation, CN II-XII grossly intact, other - Parkinsonian tremors Psychiatric exam: PRESENT: appropriate affect, normal mood Skin exam: PRESENT: dry, intact, warm Results Laboratory Results: 09/12/17 04:17 09/12/17 04:17 09/12/17 09/12/17 04:17 04:17 WBC 7.1 RBC 4.29 Hgb 13.0 Hct 38.3 MCV 89 MCH 30.2 MCHC 33.9 RDW 13.5 Plt Count 235 Seg Neutrophils % 61.3 Lymphocytes % 28.5 Monocytes % 5.3 Eosinophils % 4.2 Basophils % 0.7 Absolute Neutrophils 4.3 Absolute Lymphocytes 2.0 Absolute Monocytes 0.4 Absolute Eosinophils 0.3 Absolute Basophils 0.0 Sodium 147.7 H Potassium 3.6 Chloride 111 H Carbon Dioxide 25 Anion Gap 12 BUN 26 H Creatinine 0.97 Est GFR ( Amer) > 60 Est GFR (Non-Af Amer) 57 L Glucose 114 H Calcium 8.7 09/12/17 09/12/17 09/12/17 04:17 04:17 10:08 Creatine Kinase 33 39 CK-MB (CK-2) 0.71 Troponin I < 0.012 09/12/17 09/12/17 09/12/17 10:08 15:55 15:55 Creatine Kinase 40 CK-MB (CK-2) 0.74 0.90 Troponin I < 0.012 < 0.012 Impressions: Chest X-Ray 09/11/17 20:34 IMPRESSION: NO ACUTE RADIOGRAPHIC FINDING IN THE CHEST. Assessment & Plan - Diagnosis (1) Chest pain Qualifiers: Chest pain type: unspecified Qualified Code(s): R07.9 - Chest pain, unspecified Is this a current diagnosis for this admission?: Yes Plan: Patient was admitted for observation, 3 sets of cardiac enzymes negative for acute AK, she will get outpatient stress test, she is advised to see Rajan in the office on Friday (2) Type 2 diabetes mellitus Qualifiers: Diabetes mellitus termite control representative insulin use: without senior care use Diabetes mellitus complication status: without complication Qualified Code(s): E11.9 - Type 2 diabetes mellitus without complications Is this a current diagnosis for this admission?: Yes (3) Parkinsons disease Is this a current diagnosis for this admission?: Yes
--- NOTE | 2017-09-12 17:17 | PDOC DISCHARGE SUMMARY ---
General - Admit/Disc Date/PCP Admission Date/Primary Care Provider: 09/11/17 23:14 NEVAEH RAJAN MD Discharge Date: 09/12/17 - Discharge Diagnosis (1) Chest pain Is this a current diagnosis for this admission?: Yes (2) Type 2 diabetes mellitus Is this a current diagnosis for this admission?: Yes (3) Parkinsons disease Is this a current diagnosis for this admission?: Yes - Additional Information Resuscitation Status: Full Code Home Medications: Aspirin [Ecotrin 81 mg EC Tablet] 81 mg PO DAILY 10/17/11 Levothyroxine Sodium [Synthroid 0.1 mg Tablet] 100 mcg PO Q6AM 05/12/12 Lisinopril [Prinivil 10 mg Tablet] 20 mg PO DAILY 05/12/12 Sharps-3 Fatty Acids/Fish Oil [Fish Oil 1,000 mg Capsule] 1 each PO DAILY Simvastatin [Zocor 40 mg Tablet] 40 mg PO QHS 05/12/12 Albuterol Sulfate [Proair HFA Inhalation Aerosol 8.5 gm MDI] 2 puff IH Q4HP PRN 09/12/17 Esomeprazole Mag Trihydrate [Nexium] 40 mg PO DAILY 09/12/17 Hydrochlorothiazide 25 mg PO DAILY 09/12/17 Metformin HCl [Metformin HCl ER] 1,000 mg PO DAILY 09/12/17 Metformin HCl [Metformin HCl ER] 500 mg PO QPM 09/12/17 Mv-Min/Iron/Folic/Calcium/Vitk [One-A-Day Women's Tablet] 1 tab PO DAILY Ropinirole HCl [Requip Xl] 8 mg PO DAILY 09/12/17 History of Present Illness History of Present Illness: ALEX ERIC is a 72 year old female, she has a history of Parkinson disease, type 2 diabetes mellitus, she came to the emergency room for evaluation of atypical chest pain, the chest pain is not provoked by activity or emotional outbursts. The chest pain is not pressure-like this retrosternal chest pain, because she has risk factors for ischemic heart disease, she has diabetes mellitus, she was brought in for observation and evaluation of her symptoms. The 3 sets of cardiac enzymes are negative for acute CT, the 12-lead EKG that was done suggest atrial fibrillation but is rate controlled, there are a lot of artifacts on the EKG because of the tremors. Hospital Course Hospital Course: Patient was admitted for the management of chest pain, 3 sets of enzymes negative for acute CT Physical Exam Vital Signs: Temp Pulse Resp BP Pulse Ox 98.0 F 78 16 137/70 H 98 09/12/17 14:55 09/12/17 14:55 09/12/17 14:55 09/12/17 14:55 09/12/17 14:55 Intake & Output 09/11/17 09/12/17 09/13/17 06:59 06:59 06:59 Intake Total 100 350 Balance 100 350 Weight 87.4 kg General appearance: PRESENT: no acute distress Head exam: PRESENT: atraumatic, normocephalic Eye exam: PRESENT: conjunctiva pink, EOMI, PERRLA Ear exam: PRESENT: normal external ear exam Mouth exam: PRESENT: moist, tongue midline Neck exam: PRESENT: full ROM Respiratory exam: PRESENT: clear to auscultation rajani Cardiovascular exam: PRESENT: RRR, +S1, +S2 Vascular exam: PRESENT: normal capillary refill GI/Abdominal exam: PRESENT: normal bowel sounds, soft Rectal exam: PRESENT: deferred Neurological exam: PRESENT: alert, awake, oriented to person, oriented to place , oriented to time, oriented to situation, CN II-XII grossly intact Psychiatric exam: PRESENT: appropriate affect, normal mood Skin exam: PRESENT: dry, intact, warm Results Laboratory Results: 09/12/17 04:17 09/12/17 04:17 09/12/17 09/12/17 04:17 04:17 WBC 7.1 RBC 4.29 Hgb 13.0 Hct 38.3 MCV 89 MCH 30.2 MCHC 33.9 RDW 13.5 Plt Count 235 Seg Neutrophils % 61.3 Lymphocytes % 28.5 Monocytes % 5.3 Eosinophils % 4.2 Basophils % 0.7 Absolute Neutrophils 4.3 Absolute Lymphocytes 2.0 Absolute Monocytes 0.4 Absolute Eosinophils 0.3 Absolute Basophils 0.0 Sodium 147.7 H Potassium 3.6 Chloride 111 H Carbon Dioxide 25 Anion Gap 12 BUN 26 H Creatinine 0.97 Est GFR ( Amer) > 60 Est GFR (Non-Af Amer) 57 L Glucose 114 H Calcium 8.7 09/12/17 09/12/17 09/12/17 04:17 04:17 10:08 Creatine Kinase 33 39 CK-MB (CK-2) 0.71 Troponin I < 0.012 09/12/17 09/12/17 09/12/17 10:08 15:55 15:55 Creatine Kinase 40 CK-MB (CK-2) 0.74 0.90 Troponin I < 0.012 < 0.012 Impressions: Chest X-Ray 09/11/17 20:34 IMPRESSION: NO ACUTE RADIOGRAPHIC FINDING IN THE CHEST. Qualifiers - * PATIENT BEING DISCHARGED WITH ANY OF THE FOLLOWING DIAGNOSIS: No
[2017-09-12] MEDS ORDERED: (PENDING PHARMACY ID) (Metformin Hcl [Metformin Hcl Er] 1,500 MG) PO SCH (18:00)
[2017-09-12 18:15] VITALS: BP 134/77
[2017-09-12] MEDS ORDERED: SIMVASTATIN 40 MG TABLET PO SCH (22:00)
[2017-09-13] MEDS ORDERED: LANSOPRAZOLE 30 MG TAB.RAP.DR PO SCH (06:00)
[2017-09-13] MEDS ORDERED: LEVOTHYROXINE SODIUM 0.1 MG TABLET PO SCH (06:00)
== END 2017-09-12 18:42 | disposition home or self-care (01) ==
LOC: ER 20:02 → EH 23:14 → 3N 09-12 01:35
PROVIDERS: ADMIT Internal Medicine; ATTEND Internal Medicine
DX: R07.89 Other chest pain (principal); E11.9 Type 2 diabetes mellitus without complications; G20 Parkinson's disease; M19.90 Unspecified osteoarthritis, unspecified site; E78.5 Hyperlipidemia, unspecified; I10 Essential (primary) hypertension; I95.9 Hypotension, unspecified; K21.9 Gastro-esophageal reflux disease without esophagitis; F41.9 Anxiety disorder, unspecified; F43.0 Acute stress reaction; Z79.82 Long term (current) use of aspirin; Z79.84 Long term (current) use of oral hypoglycemic drugs; Z87.891 Personal history of nicotine dependence; Z79.899 Other long term (current) drug therapy; Z90.49 Acquired absence of other specified parts of digestive tract
CPT/HCPCS: 93005; 99285; 36415 ×2; 82553 ×2; 82962; 82550 ×2; 85025 ×2; 80048; 80053; 84484 ×2; 71045; 93010; G0378 ×2; A9270 ×6; J1650; J3490

== ENCOUNTER → 2018-01-29 | Day surgery (SDC) | payer MEDICARE ==
[~2018-01-29] MED LIST: BUPIVACAINE HCL 0.5 % INJ/PF 30 ML SDV ONE; LIDOCAINE 1% INJ-PF (10 MG/ML) 30 ML SDV ONE
--- NOTE | 2018-01-29 09:31 | Operative Report ---
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 Radiofrequency Ablation of bilateral L5 dorsal Ramus 2. Sacroiliac Joint Ablation - Lateral Branches of bilateral S1, S2, S3 DATE OF PROCEDURE: January 29, 2018 ANESTHESIA: Local COMPLICATIONS: None CONSENT: A full description of the procedure was provided including benefits as well as possible complications. All questions were answered and informed consent was given and signed. ASA guidelines for fasting were verified prior to sedation. PROCEDURE IN DETAIL The patient was brought into the fluoroscopy suite and carefully assisted into the prone position on the fluoroscopy table and allowed to adjust to a position of comfort. A grounding pad was placed on the right thigh. The low back and buttocks were widely prepped with a chloraprep solution, allowed to air dry and draped in standard sterile surgical fashion. Local anesthesia was provided by 12 mL of 1 % lidocaine delivered with a 25 g needle. PROCEDURE #1: Radiofrequency Ablation of Dorsal Ramus of bilateral L5. A 17g 100mm radiofrequency introducer needle was placed to the planned anatomic target, guided with intermittent fluoroscopy with a perpendicular approach, to terminally place at the bilateral sacral ala. The stylets were removed and the radiofrequency probes with a 4mm active tip were then inserted. Needle tip position of the probes were verified in the AP, oblique, and lateral views. At each site, the medial branch nerve was stimulated at 2Hz to a maximum of 1- 2volts determined to finalize safe needle and electrode placement. The patient was awake and responsive during this portion of the procedure. Each target was anesthetized with 2mL of 2 % Sensorcaine anesthesia for lesioning and then each target was lesioned at 80 degrees Celsius for 2 minutes and 30 seconds. Tissue impedences were noted to be between 250 and 500 Ohms. PROCEDURE #2: Radiofrequency Ablation of bilateral S1, S2, S3 Lateral Branches Using the AP fluoroscopic view for visualization of the lateral PSFA as defined by the pre-placed 27-gauge Quincke needles, appropriate skin starting positions were defined. Using the PSFA as a "clock-face", the positions were: S1; bilateral = 1 and 5 oclock S2; bilateral = 1 and 5 oclock S3; bilateral = 3 oclock Using fluoroscopic guidance, a 17g introducer needle was inserted sequentially onto the target positions described above until the introducer tip touched the bony surface of the sacrum. The stylet was withdrawn from the introducer and the radiofrequency probe with a 4 mm active tip was fully inserted into the introducer. A lateral view was obtained for standard reference. At each of the targets, needle placement was verified with the use of multi-planar fluoroscopy. The needle tip position was approximately 7 - 10mm lateral to the PSFA as determined by using an Epsilon ruler. At each site, the lateral branch nerve was stimulated at 2 Hz to a maximum of 1- 2 volts determined to finalize safe needle and electrode placement. The patient was awake and responsive during this portion of the procedure. Each target was anesthetized with 2 mL of 2 % Sensorcaine anesthesia for lesioning and then each target was lesioned at 80 degrees Celsius for 2 minutes and 30 seconds. Tissue impedences were noted to be between 250- 500 Ohms. At the conclusion of the lesioning the needles were removed and bandages placed over the needle placement sites and the patient returned to the supine position on a stretcher and transported to the recovery room without hemodynamic, neurologic, or allergic reactions. Fluoroscopic images were printed for hard copy recording and digitally archived. FLUOROSCOPIC INTERPRETATION: Appropriate epidurogram obtained. Appropriate lesioning of the 10 targets noted. POST PROCEDURE EVALUATION: The patient was comfortable in the recovery room. The patient is aware that pain may worsen before remitting and 4 6 weeks may be required prior to the onset of pain relief. IMPRESSION: 1. Technically successful sacral lateral branch, lumbar dorsal ramus for denervation from L5-S3 on the bilateral without complication. 2. RTC in 2 weeks. 3. Estimated Blood Loss: None 4. Fluoroscopy time: 30 seconds
== END ==
LOC: RAD 08:55
PROVIDERS: ATTEND Family Medicine
DX: M47.817 Spondylosis without myelopathy or radiculopathy, lumbosacral region (principal)
CPT/HCPCS: 64635; 64640 ×3; J3490 ×2

== ENCOUNTER 2018-02-10 14:58 | Emergency (ER) | payer MEDICARE ==
--- NOTE | 2018-02-10 15:42 | ER Document Report ---
ED Medical Screen (RME) - General Chief Complaint: Leg Swelling Stated Complaint: LEG SWELLING/PAIN Time Seen by Provider: 02/10/18 15:28 Notes: Patient is a 73-year-old female that presents to the emergency department for chief complaint of right leg swelling, sent by her primary care physician. Patient had an ultrasound of her lower extremities, and was sent here by her primary care physician, she does not know the results. ROS: Other than noted above, the 12 point review of systems was reviewed with the patient and were negative, all pertinent findings are included in the HPI. PHYSICAL EXAMINATION: Vital signs reviewed. GENERAL: Well-appearing, well-nourished and in no acute distress. HEAD: Atraumatic, normocephalic. EYES: Pupils equal round extraocular movements intact, conjunctiva are normal. ENT: Nares patent NECK: Normal range of motion CV: Heart regular rate and rhythm LUNGS: No respiratory distress Musculoskeletal: Normal range of motion, bilateral lower extremity edema, right greater than left, nontender. NEUROLOGICAL: Normal speech PSYCH: Normal mood, normal affect. MDM: I reviewed the patient's preliminary result of her bilateral lower extremity duplex ultrasound, demonstrated a subacute DVT, and the common femoral vein Patient seen and examined for rapid initial assessment. Vital signs reviewed. A comprehensive ED assessment and evaluation of the patient, analysis of test results and completion of the medical decision making process will be conducted by additional ED providers. *Note is created using voice recognition software and may contain spelling, syntax or grammatical errors. TRAVEL OUTSIDE OF THE [place] IN LAST 30 DAYS: No - Related Data Allergies/Adverse Reactions: No Known Allergies Allergy (Verified 02/10/18 15:27) Past Medical History - Social History Frequency of alcohol use: None Drug Abuse: None - Past Medical History Cardiac Medical History: Reports: Hx Hypercholesterolemia, Hx Hypertension Denies: Hx Coronary Artery Disease, Hx Heart Attack Pulmonary Medical History: Denies: Hx Asthma, Hx Bronchitis, Hx COPD, Hx Pneumonia Neurological Medical History: Denies: Hx Cerebrovascular Accident, Hx Seizures Endocrine Medical History: Reports: Hx Diabetes Mellitus Type 1, Hx Diabetes Mellitus Type 2 Renal/ Medical History: Denies: Hx Peritoneal Dialysis GI Medical History: Reports: Hx Gastroesophageal Reflux Disease, Hx Irritable Bowel Musculoskeltal Medical History: Reports Hx Arthritis - OA Psychiatric Medical History: Denies: Hx Depression Past Surgical History: Reports: Hx Cholecystectomy, Hx Gynecologic Surgery - BTL , Hx Orthopedic Surgery - knee bilaterally, Hx Tubal Ligation. Denies: Hx Pacemaker - Immunizations Hx Diphtheria, Pertussis, Tetanus Vaccination: No Physical Exam - Vital signs Vitals: Temp Pulse BP Pulse Ox 98.3 F 56 L 149/94 H 82 L 02/10/18 15:09 02/10/18 15:09 02/10/18 15:09 02/10/18 15:09 Course - Vital Signs Vital signs: Temp Pulse Resp BP Pulse Ox 98.3 F 56 L 149/94 H 98 02/10/18 15:09 02/10/18 15:09 02/10/18 15:09 02/10/18 15:13 Doctor's Discharge - Discharge Referrals: ELEAZAR FLORES PA [Primary Care Provider] - Follow up as needed
[2018-02-10 16:08] LABS: ABSOLUTE BASOPHILS # (AUTO) 0.1 10^3/uL (0.0-0.2); ABSOLUTE EOSINOPHILS # (AUTO) 0.5 10^3/uL (0.0-0.6); ABSOLUTE LYMPHOCYTES (AUTO) 1.9 10^3/uL (0.5-4.7); ABSOLUTE MONOCYTES (AUTO) 0.4 10^3/uL (0.1-1.4); ABSOLUTE NEUT (AUTO) 5.5 10^3/uL (1.7-8.2); BASOPHILS % (AUTO) 0.7 % (0-2); EOSINOPHILS % (AUTO) 5.9 % (0-6); HEMATOCRIT 40.8 % (36.0-47.0); HEMOGLOBIN 13.9 g/dL (12.0-15.5); LYMPHOCYTES % (AUTO) 23.1 % (13-45); MEAN CORPUSCULAR HEMOGLOBIN 30.3 pg (27.0-33.4); MEAN CORPUSCULAR HGB CONC 34.2 g/dL (32.0-36.0); MEAN CORPUSCULAR VOLUME 89 fl (80-97); MONOCYTES % (AUTO) 4.7 % (3-13); PLATELET COUNT 292 10^3/uL (150-450); RED CELL DISTRIBUTION WIDTH 14.2 % (11.5-14.0); SEGMENTED NEUTROPHILS % (AUTO) 65.6 % (42-78); TOTAL CELLS COUNTED % (AUTO) 100 %; WHITE BLOOD COUNT 8.3 10^3/uL (4.0-10.5)
[2018-02-10 16:21] LABS: INTERNATIONAL RATION (INR) 0.93
[2018-02-10 16:22] LABS: PARTIAL THROMBOPLASTIN TIME 24.2 SEC (23.5-35.8)
[2018-02-10 16:27] LABS: ALANINE AMINOTRANSFERASE 16 U/L (9-52); ALBUMIN 4.2 g/dL (3.5-5.0); ALKALINE PHOSPHATASE 61 U/L (38-126); ANION GAP 10 (5-19); ASPARTATE AMINO TRANSFERASE 18 U/L (14-36); BILIRUBIN,DIRECT 0.3 mg/dL (0.0-0.4); BILIRUBIN,TOTAL 0.5 mg/dL (0.2-1.3); BLOOD UREA NITROGEN 17 mg/dL (7-20); CALCIUM 9.3 mg/dL (8.4-10.2); CARBON DIOXIDE 30 mmol/L (22-30); CHLORIDE 101 mmol/L (98-107); GLUCOSE 99 mg/dL (75-110); POTASSIUM 3.7 mmol/L (3.6-5.0); SODIUM 141.2 mmol/L (137-145); TOTAL PROTEIN 7.7 g/dL (6.3-8.2)
--- NOTE | 2018-02-10 17:27 | ER Document Report ---
ED General - General Chief Complaint: Leg Swelling Stated Complaint: LEG SWELLING/PAIN Time Seen by Provider: 02/10/18 15:28 TRAVEL OUTSIDE OF THE [place] IN LAST 30 DAYS: No - HPI Notes: Patient is a 73-year-old female with a history of Parkinson's, diabetes, hypertension who presents to the ED complaining of right lower extremity swelling over the last week without known precipitating event or injury. Patient states that she had an ultrasound performed/ordered by her PCM and was told to come to the emergency department for her results review. Patient states that she has been eating and drinking without any difficulties. She is urinating normally and having normal bowel movements. She is able to ambulate without any difficulties. She has not have any pain associated with her swelling. Denies drug allergies or IV drug use. Denies any prolonged immobilization, distance travel, recent surgery/trauma, personal cancer history , hormone use, smoking, or previous DVT/PE. Denies any headache, fever, neck pain, URI, sore throat, chest pain, palpitations, syncope, cough, shortness of breath, wheeze, dyspnea, abdominal pain, nausea/vomiting/diarrhea, urinary retention, dysuria, hematuria, numbness/tingling, muscle paralysis/weakness, or rash. - Related Data Allergies/Adverse Reactions: No Known Allergies Allergy (Verified 02/10/18 15:27) Past Medical History - Social History Smoking Status: Former Smoker Frequency of alcohol use: None Drug Abuse: None Family History: Reviewed & Not Pertinent Patient has suicidal ideation: No Patient has homicidal ideation: No - Past Medical History Cardiac Medical History: Reports: Hx Hypercholesterolemia, Hx Hypertension Denies: Hx Coronary Artery Disease, Hx Heart Attack Pulmonary Medical History: Denies: Hx Asthma, Hx Bronchitis, Hx COPD, Hx Pneumonia Neurological Medical History: Denies: Hx Cerebrovascular Accident, Hx Seizures Endocrine Medical History: Reports: Hx Diabetes Mellitus Type 1, Hx Diabetes Mellitus Type 2 Renal/ Medical History: Denies: Hx Peritoneal Dialysis GI Medical History: Reports: Hx Gastroesophageal Reflux Disease, Hx Irritable Bowel Musculoskeletal Medical History: Reports Hx Arthritis - OA Psychiatric Medical History: Denies: Hx Depression Past Surgical History: Reports: Hx Cholecystectomy, Hx Gynecologic Surgery - BTL , Hx Orthopedic Surgery - knee bilaterally, Hx Tubal Ligation. Denies: Hx Pacemaker - Immunizations Hx Diphtheria, Pertussis, Tetanus Vaccination: No Review of Systems - Review of Systems -: Yes All other systems reviewed and negative Physical Exam - Vital signs Vitals: Temp Pulse BP Pulse Ox 98.3 F 56 L 149/94 H 98 02/10/18 15:09 02/10/18 15:09 02/10/18 15:09 02/10/18 15:09 - Notes Notes: PHYSICAL EXAMINATION: GENERAL: Well-appearing, well-nourished and in no acute distress. HEAD: Atraumatic, normocephalic. EYES: Pupils equal round and reactive to light, extraocular movements intact, sclera anicteric, conjunctiva are normal. ENT: Nares patent and without discharge. oropharynx clear without exudates. No tonsilar hypertrophy or erythema. Moist mucous membranes. NECK: Normal range of motion, supple without lymphadenopathy LUNGS: Breath sounds clear to auscultation bilaterally and equal. No wheezes rales or rhonchi. HEART: Regular rate and rhythm without murmurs, rubs, gallops. ABDOMEN: Soft, nontender, nondistended abdomen. No guarding, no rebound. No masses appreciated. Normal bowel sounds present. No CVA tenderness bilaterally. Musculoskeletal: FROM to passive/active. Strength 5+/5. + larger right leg vs left. No calf tenderness b/l. Extremities: No cyanosis, clubbing, or edema b/l. Peripheral pulses 1+ b/l LE. Capillary refill less than 3 seconds. NEUROLOGICAL: Normal speech, normal gait. PSYCH: Normal mood, normal affect. SKIN: Warm, Dry, normal turgor, no rashes or lesions noted. Course - Re-evaluation Re-evalutation: 02/10/18 17:[address] Riddle who is in agreement with dispo/plan. Patient is an afebrile, well-hydrated, 73-year-old female who presents to the ED with a subacute, non-occlusive, DVT to her common femoral vein and superficial femoral vein. Patient does not have any active hemorrhaging, history of GI bleed or hemorrhagic bleed, or any recent surgery. CBC, CMP, PTT , PT/INR were unremarkable for any acute pathology. Lower extremities are warm with 1+ pulses bilaterally. Patient does not have any chest pain, dyspnea on exertion, or shortness of breath. No further labs or imaging warranted at this time. Patient is nontoxic-appearing and is tolerating p.o. without difficulties. Patient has been wanting to be discharged almost immediately upon her arrival. Low suspicion for any ACS, PE, pneumothorax, pericarditis, dissection, respiratory compromise, severe dehydration, sepsis, meningitis, limb ischemia, or other systemic emergent condition at this time. Patient is aware that her condition can change from initial presentation and she needs to monitor symptoms closely and seek medical attention for any acute changes. I did review the risks of falling and bleeding while on anticoagulants thoroughly with the patient. She has verbalized understanding to the risk and benefit. I will send her home with a prescription for Eliquis to take as directed. Recommend conservative measures for symptoms. Patient has an appointment with your PCM tomorrow. Return to the ED with any worsening/concerning symptoms otherwise as reviewed in discharge. Patient is in agreement. - Vital Signs Vital signs: Temp Pulse Resp BP Pulse Ox 98.3 F 56 L 149/94 H 98 02/10/18 15:09 02/10/18 15:09 02/10/18 15:09 02/10/18 15:13 - Laboratory Result Diagrams: 02/10/18 15:55 02/10/18 15:55 Laboratory results interpreted by me: 02/10/18 15:55 RDW 14.2 H Discharge - Discharge Clinical Impression: DVT (deep venous thrombosis) Qualifiers: DVT location: lower extremity Affected thrombotic vein of extremity: femoral Chronicity: acute Laterality: right Qualified Code(s): I82.411 - Acute embolism and thrombosis of right femoral vein Condition: Stable Disposition: HOME, SELF-CARE Instructions: DVT Outpatient Treatment ([facility]) Additional Instructions: Maintain adequate fluid and food intake Take home medications as directed Low sodium/fat diet Elevating the legs may help with swelling Monitor blood pressure daily and keep a log Monitor symptoms for any acute changes Recheck with your PCM tomorrow as scheduled Return to the ED with any worsening symptoms and/or development of fever, headache, chest pain, palpitations, syncope, shortness of breath, trouble breathing, abdominal pain, n/v/d, blood in stool/urine, loss of control of bowel /bladder, urinary retention, muscle weakness/paralysis, numbness/tingling, or other worsening symptoms that are concerning to you. Prescriptions: Apixaban [Eliquis] 5 - 10 mg PO ASDIR PRN #[id number] tab.ds.[id number] PRN Reason: Forms: Elevated Blood Pressure Referrals: ELEAZAR FLORES PA [Primary Care Provider] - Follow up tomorrow
[2018-02-10 17:48] VITALS: BP 134/98
== END 2018-02-10 17:51 | disposition home or self-care (01) ==
LOC: ER 14:58
DX: I82.411 Acute embolism and thrombosis of right femoral vein (principal); E11.9 Type 2 diabetes mellitus without complications; I10 Essential (primary) hypertension; Z87.891 Personal history of nicotine dependence
CPT/HCPCS: 36415; 80053; 85025; 85610; 85730; 99283

== ENCOUNTER → 2018-02-10 | Outpatient (CLI) | payer MEDICARE ==
--- NOTE | 2018-02-10 15:47 | RADIOLOGY REPORT (SQ) ---
EXAM DESCRIPTION: VENOUS BILATERAL LOWER COMPLETED DATE/TIME: 02/10/2018 3:07 pm REASON FOR STUDY: BLE EDEMA R60.0 LOCALIZED EDEMA COMPARISON: None. TECHNIQUE: Dynamic and static matamoros scale and color images acquired of both lower extremity venous sy stems. Selected spectral images acquired with additional compression and augmentation maneuvers. Imag es stored on PACS. LIMITATIONS: None. FINDINGS: RIGHT LEG COMMON FEMORAL AND FEMORAL: Normal phasicity, partial compression and augmentation. There is some no nocclusive thrombus in the common femoral vein and superficial femoral vein that is subacute. POPLITEAL: Normal compression and augmentation. No visualized echogenic material on matamoros scale. No de fects on color images. CALF VESSELS: Normal compression and augmentation. No visualized echogenic material on matamoros scale. No defects on color image. GSV AND SSV: Normal compression. No visualized echogenic material on matamoros scale. No defects on color images. ANY DEEP VENOUS INSUFFICIENCY: Not evaluated. ANY EVIDENCE OF POPLITEAL CYST: No. OTHER: No other significant finding. LEFT LEG COMMON FEMORAL AND FEMORAL: Normal phasicity, compression and augmentation. No visualized echogenic m aterial on matamoros scale. No defects on color images. POPLITEAL: Normal compression and augmentation. No visualized echogenic material on matamoros scale. No de fects on color images. CALF VESSELS: Normal compression and augmentation. No visualized echogenic material on matamoros scale. No defects on color images. GSV AND SSV: Normal compression. No visualized echogenic material on matamoros scale. No defects on color images. ANY DEEP VENOUS INSUFFICIENCY: Not evaluated. ANY EVIDENCE POPLITEAL CYST: No. OTHER: No other significant finding. IMPRESSION: Subacute DVT in the right common femoral vein and superficial femoral vein with nonocclu sive thrombus. TECHNICAL DOCUMENTATION: JOB ID: [id number] [employer]- All Rights Reserved Reading location - IP/workstation name: [email or web address]
== END ==
LOC: SP 13:34
PROVIDERS: ATTEND Physician Assistant
DX: R60.0 Localized edema (principal)
CPT/HCPCS: 93970

== ENCOUNTER → 2018-08-27 | Outpatient (CLI) | payer MEDICARE ==
--- NOTE | 2018-08-27 10:45 | RADIOLOGY REPORT (SQ) ---
EXAM DESCRIPTION: VENOUS UNILATERAL LOWER COMPLETED DATE/TIME: 08/27/2018 9:31 am REASON FOR STUDY: RLE SWELLING I82.411 ACUTE EMBOLISM AND THROMBOSIS OF RIGHT FEMORAL VEIN COMPARISON: None. TECHNIQUE: Dynamic and static matamoros scale and color images acquired of the right leg venous system. S elected spectral images acquired with additional compression and augmentation maneuvers. The contrala teral common femoral vein and saphenofemoral junction were also imaged. Images stored on PACS. LIMITATIONS: None. FINDINGS: COMMON FEMORAL: Normal phasicity, compression and augmentation. No visualized echogenic ma terial on matamoros scale. No defects on color images. FEMORAL: Normal compression and augmentation. No visualized echogenic material on matamoros scale. No defe cts on color images. POPLITEAL: Normal compression, augmentation. No visualized echogenic material on matamoros scale. No defec ts on color images. CALF VESSELS: Normal compression, augmentation. No visualized echogenic material on matamoros scale. No de fects on color images. GSV and SSV: Normal compression, augmentation. No visualized echogenic material on matamoros scale. No def ects on color images. ANY DEEP VENOUS INSUFFICIENCY: Not evaluated. ANY EVIDENCE OF POPLITEAL CYST: No. OTHER: No other significant finding. CONTRALATERAL COMMON FEMORAL VEIN AND SAPHENOFEMORAL JUNCTION: Normal phasicity, compression and augmentation. No visualized echogenic material on matamoros scale. No de fects on color images. IMPRESSION: NO EVIDENCE DVT OR SVT IN THE RIGHT LEG. TECHNICAL DOCUMENTATION: JOB ID: [id number] [employer]- All Rights Reserved Reading location - IP/workstation name: [email or web address]
== END ==
LOC: SP 07:31
PROVIDERS: ATTEND Physician Assistant
DX: I82.411 Acute embolism and thrombosis of right femoral vein (principal)
CPT/HCPCS: 93971